=== PATIENT | female | born 1935 | race Caucasian/White ===

== ENCOUNTER 2016-12-23 14:57 | Outpatient (CLI) | payer MEDICARE, OTHER | END 2016-12-23 14:58 | disposition home or self-care (01) | DX: N17.9 Acute kidney failure, unspecified (principal); Q61.02 Congenital multiple renal cysts ==

== ENCOUNTER 2018-01-10 08:00 | Outpatient (CLI) | payer MEDICARE, OTHER ==
[2018-01-10 20:13] LABS: CALCIUM 9.8 mg/dL (8.5-10.3); CREATININE 1.2 mg/dL (0.4-1.0)
== END 2018-01-10 08:01 ==
LOC: LAB.WCP 08:00
PROVIDERS: ATTEND Family Medicine
DX: E87.6 Hypokalemia (principal); E87.1 Hypo-osmolality and hyponatremia; N18.9 Chronic kidney disease, unspecified
CPT/HCPCS: 36415; 80048

== ENCOUNTER 2018-04-05 08:00 | Outpatient (CLI) | payer MEDICARE, OTHER ==
[2018-04-05 19:15] LABS: CALCIUM 10.1 mg/dL (8.5-10.3); CREATININE 1.2 mg/dL (0.4-1.0)
== END 2018-04-05 08:01 | disposition home or self-care (01) ==
LOC: LAB.WCP 08:00
PROVIDERS: ATTEND Internal Medicine Endocrinology, Diabetes & Metabolism
DX: E87.1 Hypo-osmolality and hyponatremia (principal)
CPT/HCPCS: 36415; 80048

== ENCOUNTER 2018-05-03 15:48 | Outpatient (CLI) | payer MEDICARE, OTHER ==
[2018-05-03] MEDS ORDERED: GADOBUTROL 7.5 MMOL/7.5 ML VIAL ONE (16:14)
--- NOTE | 2018-05-04 16:15 | MRI Report ---
Procedure Date: 05/03/2018 Accession Number: [id number] / [id number] Procedure: MRI - Brain W/WO CPT Code: FULL RESULT: EXAM: MRI BRAIN WITHOUT CONTRAST EXAM DATE: 05/03/2018 05:10 PM. CLINICAL HISTORY: GAIT DISTURBANCE. COMPARISON: None. TECHNIQUE: Multiplanar, multisequence T1-weighted and fluid-sensitive MR sequences of the brain were performed. Sequences optimized for routine evaluation. Other: None. IV Contrast: None. Findings: Relevant images are indicated (image number, series number). There is no acute or subacute ischemic change in the brain. There is no significant hemosiderin deposition present in the brain. There is no hemorrhage, mass or midline shift. Orbital contents negative. Paranasal sinuses, mastoid air cells demonstrate no significant fluid signal. Normal expected flow-voids of the major arteries/veins. Moderate generalized brain atrophy, mild scattered periventricular, subcortical white matter disease. Mild compensatory ventricular enlargement. Asymmetrical increased signal intensity right amygdala (12, 701), measures at least 1.3 cm diameter. Pituitary unremarkable. Mild/moderate mid brain atrophy. Craniocervical junction, limited evaluation of her cervical cord negative. Impressions: 1. No acute or subacute ischemic change. 2. Moderate generalized brain atrophy. Findings can be related to the presence of a primary neural degenerative process given the paucity of white matter disease. 3. There is a 1.3 cm area of asymmetrically increased signal intensity seen on axial FLAIR/T2 imaging of the right amygdala/medial temporal lobe. This patient may benefit from postcontrast and for further characterization. Differential includes sclerotic changes of the medial temporal lobe, less likely considerations include underlying neoplastic process, focal cortical dysplasia. Correlate with neurological exam findings. 4. Superimposed minimal periventricular, subcortical white matter disease most likely related to chronic small vessel ischemic disease. [facility]
== END 2018-05-03 15:49 | disposition home or self-care (01) ==
LOC: DI 15:48
PROVIDERS: ATTEND Family Medicine
DX: G31.9 Degenerative disease of nervous system, unspecified (principal); R90.82 White matter disease, unspecified
CPT/HCPCS: 70553; A9585

== ENCOUNTER 2018-05-05 12:55 | Outpatient (CLI) | payer MEDICARE, OTHER ==
[2018-05-05 18:59] LABS: BASOPHILS % (AUTO) 0.2 %; HGB - HEMOGLOBIN 13.2 g/dL (12.0-16.0); LYMPHOCYTES % (AUTO) 57.9 %; MEAN CORPUSCULAR HEMOGLOBIN 31.2 pg (27.0-31.0); MEAN CORPUSCULAR HGB CONC 33.3 g/dL (32.0-36.0); MEAN CORPUSCULAR VOLUME 93.5 fL (81.0-99.0); NEUTROPHILS % (AUTO) 35.9 %; PLT - PLATELET COUNT 231 10^3/uL (130-450); RED BLOOD COUNT 4.24 10^6/uL (4.20-5.40); RED CELL DISTRIBUTION WIDTH 14.1 % (12.0-15.0); WHITE BLOOD COUNT 13.3 x10^3/uL (4.8-10.8)
[2018-05-05 19:12] LABS: ABNORMAL LYMPHS % (MANUAL) 0 %
[2018-05-05 19:21] LABS: ALBUMIN 3.9 g/dL (3.2-5.5); BILIRUBIN,TOTAL 1.1 mg/dL (0.2-1.0); TOTAL PROTEIN 7.9 g/dL (6.7-8.2)
[2018-05-05 20:56] LABS: BAND NEUTROPHILS % (MANUAL) 2 %; LYMPHOCYTES # (MANUAL) 6.7 10^3/uL (1.5-3.5); LYMPHOCYTES % (MANUAL) 34 %; MONOCYTES # (MANUAL) 0.8 10^3/uL (0.0-1.0); NEUTROPHILS # (MANUAL) 5.9 10^3/uL (1.5-6.6); NEUTROPHILS % (MANUAL) 42 %
[2018-05-05 20:57] LABS: PLATELET ESTIMATE, MANUAL NORMAL (130-450,000) (NORMAL); PLATELET MORPHOLOGY NORMAL APPEARANCE (NORMAL); RBC MORPHOLOGY (MULTIPLE) NORMAL APPEARANCE (NORMAL)
== END 2018-05-05 12:56 ==
LOC: LAB.WCP 12:55
PROVIDERS: ATTEND Family Medicine
DX: R41.0 Disorientation, unspecified (principal)
CPT/HCPCS: 36415; 80053; 84443; 85025